=== PATIENT | female | born 1980 | race Asian ===

== ENCOUNTER 2025-04-08 14:49 | Emergency (ER) | payer SELFPAY ==
[2025-04-08 15:02] VITALS: BP 127/84
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
[2025-04-08 18:48] VITALS: BP 122/78
== END 2025-04-08 18:50 | disposition home or self-care (01) ==
LOC: EMR 14:49
PROVIDERS: EMERGENCY PHYSICIAN Emergency Medicine; FAMILY PHYSICIAN Family Medicine
DX: S80.02XA Contusion of left knee, initial encounter (principal); S80.01XA Contusion of right knee, initial encounter; M25.552 Pain in left hip; V49.49XA Driver injured in collision with other motor vehicles in traffic accident, initial encounter
CPT/HCPCS: 99283; 73502; 73564